=== PATIENT | male | born 1995 | race Caucasian/White ===

== ENCOUNTER 2016-08-23 18:46 | Emergency (ER) | payer OTHER ==
[~2016-08-23] VITALS: Ht 185.4 cm; Wt 93.0 kg
[2016-08-23] MEDS ORDERED: diphenhydrAMINE 50 MG/ML INJ (BENADRYL) IV ONE (18:55)
[2016-08-23] MEDS ORDERED: methylPREDNISolone 125 MG (Solu-MEDROL) VIAL IV ONE (18:55)
[2016-08-23] MEDS ORDERED: FAMOTIDINE IV 20 MG in SODIUM CHLORIDE VIAL (PF) 10 ML IV ONE (18:55)
[2016-08-23] MEDS ORDERED: SODIUM CHLORIDE 50 ML IV ONE (19:01)
[2016-08-23] MEDS ORDERED: NS IV ONE (19:05)
[2016-08-23] MEDS ORDERED: EPINEPHrine 1MG/ML (1:1000) 1 ML AMPUL (ADRENALIN) IM ONE (19:15)
[2016-08-23] MEDS ORDERED: methylPREDNISolone 80 MG/ML (DEPO MEDROL) VIAL IM ONE (19:15)
[2016-08-23] MEDS ORDERED: MINO100C2 PO (19:25)
--- NOTE | 2016-08-23 19:52 | NUR ---
Patient reports, "face don't feel as tight, i can swallow better, my throat still hurts." Patient's face isn't as red in color and puffiness to eyes do like it has decreased some.
[2016-08-23] MEDS ORDERED: EPIN0.3P2 IM (20:23)
[2016-08-23 20:58] VITALS: BP 127/69
--- NOTE | 2016-08-24 07:21 | Diagnostic Imaging Report ---
INDICATION: 20-year-old male with shortness of breath. COMPARISONS: None. FINDINGS: Single view of the chest shows normal heart, pulmonary vasculature, pleura, and diaphragms with no focal opacities. Soft tissues and bony thorax are normal. IMPRESSION: No acute cardiopulmonary changes. Dictated by: Dictated on workstation # [id number]
== END 2016-08-23 20:52 | disposition home or self-care (01) ==
LOC: ED 18:48
DX: T78.2XXA Anaphylactic shock, unspecified, initial encounter (principal); R60.0 Localized edema
CPT/HCPCS: 71010; 96372; 96374; 96375; 99283; J0171; J1040; J1200; J2930; J3490; J7050